=== PATIENT | male | born 1995 | race Caucasian/White ===

== ENCOUNTER 2022-06-07 11:42 | Emergency (ER) | payer OTHER ==
[~2022-06-07] VITALS: Ht 175.2 cm; Wt 63.5 kg
[2022-06-07 14:09] LABS: BASO % 0.2 % (0.0-1.0); HEMATOCRIT 41.2 % (42.0-52.0); LYMPH # 1.1 10*3/uL (1.3-4.4); LYMPH % 10.9 % (27.0-41.0); MEAN CORPUSCULAR HGB 30.2 pg (27.0-31.0); MONO # 0.2 10*3/uL (0.1-1.0); MONO % 1.5 % (3.0-9.0); NEUT # 8.6 10*3/uL (2.3-7.9); NEUT % 87.1 % (47.0-73.0); PLATELET COUNT AUTOMATED 367 10*3/uL (130-400); RED BLOOD COUNT 4.63 10*6/uL (4.50-5.90); RED CELL DISTRI WIDTH 12.7 % (0-14.5); WHITE BLOOD COUNT 9.8 10*3/uL (4.8-10.8)
[2022-06-07 14:24] LABS: ALKALINE PHOSPHATASE 62 U/L (46-116); BUN 15 mg/dl (9-23); CHLORIDE 103 mmol/L (98-107); LIPASE 33 U/L (12-53); POTASSIUM 4.4 mmol/L (3.4-5.1); SGPT/ALT 25 U/L (10-49); TOTAL PROTEIN 7.9 gm/dL (6.0-8.0)
[2022-06-07] MEDS ORDERED: PEPCID20 MG PO (14:53)
[2022-06-07] MEDS ORDERED: OMEPRAZOLE10 MG PO (14:53)
== END 2022-06-07 15:59 | disposition home or self-care (01) ==
LOC: ED 11:42
PROVIDERS: Physician Assistant
DX: R10.13 Epigastric pain (principal); R11.2 Nausea with vomiting, unspecified; K21.9 Gastro-esophageal reflux disease without esophagitis; Z88.1 Allergy status to other antibiotic agents

== ENCOUNTER 2023-10-04 17:55 | Emergency (ER) | payer OTHER ==
[~2023-10-04] VITALS: Ht 175.2 cm; Wt 72.6 kg
[~2023-10-04 17:55] MED LIST: OMEPRAZOLE10 MG PO; PEPCID20 MG PO
[2023-10-04 18:23] LABS: BASO % 0.4 % (0.0-1.0); EOS % 0.1 % (1.0-4.0); HEMATOCRIT 42.3 % (42.0-52.0); LYMPH # 1.1 10*3/uL (1.3-4.4); MEAN CELL VOLUME 88.9 fl (80.0-94.0); MEAN CORPUSCULAR HGB 30.7 pg (27.0-31.0); MEAN CORPUSCULAR HGB CONC 34.5 g/dl (33.0-37.0); MEAN PLATELET VOLUME 8.8 fl (9.6-12.3); MONO # 0.6 10*3/uL (0.1-1.0); MONO % 7.7 % (3.0-9.0); NEUT # 6.1 10*3/uL (2.3-7.9); NEUT % 77.5 % (47.0-73.0); PLATELET COUNT AUTOMATED 300 10*3/uL (130-400); RED BLOOD COUNT 4.76 10*6/uL (4.50-5.90); RED CELL DISTRI WIDTH 12.5 % (0-14.5); WHITE BLOOD COUNT 7.8 10*3/uL (4.8-10.8)
[2023-10-04 18:38] LABS: BILIRUBIN Negative (Negative); BLOOD 2+ (Negative); CLARITY Clear (Clear); COLOR Yellow (Yellow); GLUCOSE Negative (Negative); KETONE Negative (Negative); LEUKO ESTERASE Negative (Negative); NITRITE Negative (Negative); SPECIFIC GRAVITY <= 1.005 (1.001-1.030); UROBILINOGEN 0.2 E.U./dl (0.0-1.0)
[2023-10-04 18:47] LABS: URINE AMPHETAMINES Positive (1000ng/ml); URINE BARBITURATES Negative (200ng/ml); URINE BENZODIAZEPINES Positive (200ng/ml); URINE CANNABINOIDS (THC) Positive (50ng/ml); URINE COCAINE Negative (300ng/ml); URINE METHADONE Negative (300ng/ml); URINE OPIATES Negative (300ng/ml); URINE PHENCYCLIDINE Negative (25ng/ml)
[2023-10-04 18:50] LABS: ALKALINE PHOSPHATASE 66 U/L (46-116); CHLORIDE 106 mmol/L (98-107); LIPASE 43 U/L (12-53); POTASSIUM 3.6 mmol/L (3.4-5.1); SGPT/ALT 19 U/L (5-49); TOTAL PROTEIN 7.4 gm/dL (6.0-8.0)
[2023-10-04 18:51] LABS: BUN < 5 mg/dl (9-23)
[2023-10-04 20:11] LABS: BACTERIA TRACE; WBC 0-2 wbc/hpf (0-5)
[2023-10-04] MEDS ORDERED: CIPRO500 MG PO (21:54)
[2023-10-04] MEDS ORDERED: Ciprofloxacin Hydrochloride 500 MG TAB PO ONE (21:55)
[2023-10-04] MEDS ORDERED: Ketorolac Tromethamine 30 MG/ML VIAL IM ONE (21:55)
== END 2023-10-04 22:10 | disposition home or self-care (01) ==
LOC: ED 17:55
PROVIDERS: Nurse Practitioner Family
DX: N30.90 Cystitis, unspecified without hematuria (principal); F17.200 Nicotine dependence, unspecified, uncomplicated; Z88.8 Allergy status to other drugs, medicaments and biological substances

== ENCOUNTER 2024-05-05 11:13 | Emergency (ER) | payer OTHER ==
[~2024-05-05] VITALS: Ht 175.2 cm; Wt 54.4 kg
[~2024-05-05 11:13] MED LIST changes: +CIPRO500 MG PO
[2024-05-05] MEDS ORDERED: AVPAK AZITHROM250 M1 PO (12:48)
[2024-05-05] MEDS ORDERED: PREDNISONE20 M1 PO (12:48)
[2024-05-05] MEDS ORDERED: methylPREDNISolone sod succ 125 MG VIAL IM ONE (12:50)
[2024-05-05] MEDS ORDERED: AZITHROMYCIN 250 MG TAB PO ONE (12:50)
== END 2024-05-05 12:53 | disposition home or self-care (01) ==
LOC: ED 11:13
DX: J40 Bronchitis, not specified as acute or chronic (principal); Z20.822 Contact with and (suspected) exposure to COVID-19; R53.83 Other fatigue; R10.13 Epigastric pain; Z88.1 Allergy status to other antibiotic agents